=== PATIENT | male | born 1930 | race Caucasian/White ===

== ENCOUNTER → 2016-06-21 | Outpatient (CLI) | payer MEDICARE | END | disposition home or self-care (01) | LOC: PCVCCLINIC 15:27 | PROVIDERS: ATTEND Internal Medicine Cardiovascular Disease | DX: E78.5 Hyperlipidemia, unspecified (principal); I65.29 Occlusion and stenosis of unspecified carotid artery; I35.8 Other nonrheumatic aortic valve disorders; I25.10 Atherosclerotic heart disease of native coronary artery without angina pectoris; I35.0 Nonrheumatic aortic (valve) stenosis | CPT/HCPCS: 80061; 93005; G0463 ==

== ENCOUNTER → 2016-07-25 | Outpatient (CLI) | payer MEDICARE | END | disposition home or self-care (01) | LOC: PCVCIMAG 10:59 | PROVIDERS: ATTEND Internal Medicine Cardiovascular Disease | DX: I25.10 Atherosclerotic heart disease of native coronary artery without angina pectoris (principal); I10 Essential (primary) hypertension; I35.0 Nonrheumatic aortic (valve) stenosis; Z95.5 Presence of coronary angioplasty implant and graft | CPT/HCPCS: 93325; 93351 ==

== ENCOUNTER → 2017-03-22 | Outpatient (CLI) | payer MEDICARE ==
--- NOTE | 2017-03-22 14:45 | PCVCIMAG ---
APPROVED REPORT Study performed: 03/22/2017 11:39:01 EXAM: Comprehensive 2D, Doppler, and color-flow Echocardiogram Patient Location: Echo lab Status: routine BSA: 1.97 HR: 54 bpmBP: 122/82 mmHg Rhythm: NSR Other Information Study Quality: Adequate Risk Factors: Cardiac Risk Factors: HTN, Hyperlipidemia Indications CAD Mild Aortic Stenosis 2D Dimensions LVEF(%): 60.22 (>50%) IVSd: 11.13 (7-11mm)LVOT Diam: 21.40 (18-24mm) LVDd: 45.27 mm PWd: 9.54 (7-11mm)Ascending Ao: 36.40 (22-36mm) LVDs: 30.79 (25-40mm) Left Atrium: 41.30 (27-40mm) LV Single Plane 4CH: 59.93 % LV Single Plane 2CH: 64.47 %Encarnacion's LVEF: 62.20 % Biplane EF: 63.1 % Volumes Left Atrial Volume (Systole) Single Plane 4CH: 75.20 mLSingle Plane 2CH: 79.97 mL LA ESV Index: 41.00 mL/m2 Aortic Valve AoV Peak Onur.: 2.51 m/s AO Peak Gr.: 25.30 mmHgLVOT Max P.79 mmHg AO Mean Gr.: 12.36 mmHgLVOT Mean P.85 mmHg AO V2 Mean: 1.62 m/sLVOT Max V: 0.97 m/s AO V2 VTI: 74.90 cmLVOT Mean V: 0.64 m/s SOFIA (VTI): 1.28 [id number] VTI: 26.74 cm SOFIA Vmax: 1.39 cm2 AI Vmax: 4.89 m/sSV (LVOT): 96.10 mL AI Smyth: 2.73 m/s2 AI PHT: 519.43 ms Mitral Valve E/A Ratio: 1.5 MV Decel. Time: 239.75 ms MV E Max Onur.: 0.58 m/s MV A Onur.: 0.39 m/s IVRT: 89.97 ms Pulmonary Valve PV Peak Onur.: 0.77 m/sPV Peak Gr.: 2.36 mmHg Pulmonary Vein P Vein S: 0.46 m/sP Vein A: 0.28 m/s P Vein D: 0.61 m/sP Vein A Dur.: 121.1 msec P Vein S/D Ratio: 0.75 Tricuspid Valve TR Peak Onur.: 2.77 m/s TR Peak Gr.: 30.77 mmHg Left Ventricle The left ventricle is normal size. There is normal LV segmental wall motion. There is normal left ventricular wall thickness. Left ventricular systolic function is normal. The left ventricular ejection fraction is within the normal range. LVEF is 65%. Grade II - pseudonormal filling dynamics. Right Ventricle The right ventricle is normal size. The right ventricular systolic function is normal. Atria Left atrium is mildly dilated. The right atrium size is normal. Aortic Valve The aortic valve is moderately sclerotic. Mild aortic regurgitation. There is mild valvular aortic stenosis. Calculated aortic valve area is 1.4 cm2 with maximum pressure gradient of 25 mmHg and mean pressure gradient of 12 mmHg. Mitral Valve The mitral valve is normal in structure. Trace mitral regurgitation. No evidence of mitral valve stenosis. Tricuspid Valve The tricuspid valve is normal in structure. Mild tricuspid regurgitation with PAP of 38 mmHg. Pulmonic Valve The pulmonary valve is normal in structure. There is no pulmonic valvular regurgitation. Great Vessels The aortic root is normal in size. IVC is normal in size and collapses with >50% inspiration Pericardium There is no pericardial effusion. <Conclusion> The left ventricle is normal size. LVEF is 65%. Grade II - pseudonormal filling dynamics. The right ventricle is normal size. Left atrium is mildly dilated. The right atrium size is normal. The aortic valve is moderately sclerotic. Mild aortic regurgitation. There is mild valvular aortic stenosis. Calculated aortic valve area is 1.4 cm2 with maximum pressure gradient of 25 mmHg and mean pressure gradient of 12 mmHg. Trace mitral regurgitation. Mild tricuspid regurgitation with PAP of 38 mmHg. There is no pericardial effusion.
== END | disposition home or self-care (01) ==
LOC: PCVCIMAG 12:19
PROVIDERS: ATTEND Internal Medicine Cardiovascular Disease
DX: I25.10 Atherosclerotic heart disease of native coronary artery without angina pectoris (principal); I10 Essential (primary) hypertension; E78.00 Pure hypercholesterolemia, unspecified; I35.0 Nonrheumatic aortic (valve) stenosis; I77.9 Disorder of arteries and arterioles, unspecified; R00.1 Bradycardia, unspecified; I07.1 Rheumatic tricuspid insufficiency; Z79.82 Long term (current) use of aspirin; Z79.899 Other long term (current) drug therapy; Z95.5 Presence of coronary angioplasty implant and graft
CPT/HCPCS: 80061; 93005; 93306; G0463

== ENCOUNTER → 2018-02-14 | Outpatient (CLI) | payer MEDICARE | END | disposition home or self-care (01) | LOC: PCVCCLINIC 15:19 | PROVIDERS: ATTEND Internal Medicine Cardiovascular Disease | DX: I25.10 Atherosclerotic heart disease of native coronary artery without angina pectoris (principal); I35.0 Nonrheumatic aortic (valve) stenosis; I10 Essential (primary) hypertension; I77.9 Disorder of arteries and arterioles, unspecified; E78.00 Pure hypercholesterolemia, unspecified; Z79.899 Other long term (current) drug therapy; Z79.82 Long term (current) use of aspirin | CPT/HCPCS: 80061; 93005; G0463 ==

== ENCOUNTER → 2018-08-29 | Outpatient (CLI) | payer MEDICARE ==
--- NOTE | 2018-08-30 09:12 | PCVCIMAG ---
APPROVED REPORT Study performed: 08/29/2018 14:12:19 Exam: Stress Echocardiogram Indication: Hyperlipidemia, Hypertension Stress Nurse: Bridgette Vargas RN Status: routine Ht: 5 ft 7 in HR: 74 bpm BP: 112/78 mmHg Rhythm: NSR Medical History Medical History: HTN, Hyperlipidemia, Aortic Stenosis Procedure The patient underwent an Exercise Stress Test using the Jac Protocol. Blood pressure, heart rate, and EKG were monitored. An Echocardiogram was performed by tv technician in four stages in quad fashion. At peak stress, four selected images were obtained and placed side by side with resting images for comparison. Stress Test Details Stress Test: Exercise stress testing was performed using a Jac protocol. HR Resting HR: 74 bpmMax Heart Rate (APMHR): 135 bpm Target HR (85% APMHR): 114 bpm Recovery HR: 77 bpm HR response to stress: Normal HR response to stress BP Resting BP: 112/78 mmHg Max BP: 144/78 mmHg Recovery BP: 138/78 mmHg BP response to stress: Normal blood pressure response to stress. ECG Resting ECG: Sinus Rhythm Stress ECG: Sinus Rhythm Clinical Reason for Termination: Maximal effort Exercise duration: 8 min sec Highest Stage Achieved: Stage 3: 3.4 mph at 14% grade. Exercise capacity: 10.10 METs Overall Exercise Capacity for Age: Good Pre-Stress Echo The resting Echocardiogram showed normal left ventricular contractility with an estimated Ejection Fraction of about 55-60%. Normal wall motion in all segments on baseline images. Post-Stress Echo The stress Echocardiogram showed normal left ventricular contractility with an estimated Ejection Fraction of about 60-65%. Normal augmentation of wall motion in all segments on post stress images. Clinical No clinical or ECG evidence for ischemia. Conclusion Clinical Response: Non-ischemic Exercise Capacity: Average Stress ECG Response: Non-ischemic Stress Echo Images: Non-ischemic The left ventricle is normal in size and wall thickness in both the rest and stress images. Other Information Study Quality: Good <Conclusion> The left ventricle is normal in size and wall thickness in both the rest and stress images.
== END | disposition home or self-care (01) ==
LOC: PCVCIMAG 13:52
PROVIDERS: ATTEND Internal Medicine Cardiovascular Disease
DX: I10 Essential (primary) hypertension (principal); E78.5 Hyperlipidemia, unspecified
CPT/HCPCS: 93325; 93351